=== PATIENT | male | born 1955 | race Caucasian/White ===

== ENCOUNTER → 2020-07-09 | Outpatient (CLI) | payer OTHER ==
[~2020-07-09] MED LIST: ASA5UEC; AZOR 5-20 MG T1 EACH PO; CELEXA 20 MG TA20 M1 PO; COZAAR 25 MG TA25 M1 PO; FAMOTIDINE; INHALERS; METFORMIN HCL500 MG PO; NORVASC5 MG PO; PRILOSEC 20 MG20 MG PO; Vitamin B-12 IM
--- NOTE | 2020-07-09 10:49 | EXE ---
[facility] [place] [address] STRESS ECHOCARDIOGRAM Name: NATHAN ALVARADO Room #: REG [facility].#: [id number] Admission: 07/09/20 Attend Phys: Jackson Amaya MD Discharge: Date of : 57 Report #: [id number] THIS REPORT FOR: cc: Jackson Amaya MD, Yutaka MD Santiago, Patrick MD [facility] ~ APPROVED REPORT Study performed: 07/09/2020 08:20:21 Exam: Stress Echocardiogram Indication: Increased calcium score, Hypertension Patient Location: Out-Patient Room #: 2 Status: routine Ht: 6 ft 0 in HR: 67 bpm BP: 124/86 mmHg Rhythm: NSR Medical History Cardiac Risk Factors: HTN, DM Exercise History: Physically active Procedure The patient underwent an Exercise Stress Test using the Carl Protocol. Blood pressure, heart rate, and EKG were monitored. An Echocardiogram was performed by application support technician in four stages in quad fashion. At peak stress, four selected images were obtained and placed side by side with resting images for comparison. Stress Test Details Stress Test: Exercise stress testing was performed using a Carl protocol. HR Resting HR: 67 bpm Max Heart Rate (APMHR): 157 bpm Max HR Achieved: 151 bpm Target HR (85% APMHR): 133 bpm % of APMHR: 96 Recovery HR: 87 bpm HR response to stress: Normal HR response to stress BP Resting BP: 124/86 mmHg Max BP: 182/80 mmHg [facility] [address] [place] [address] STRESS ECHOCARDIOGRAM Name: JENNYNATHAN ACLL Room #: REG [facility].#: [id number] Admission: 07/09/20 Attend Phys: Jackson Amaya MD Discharge: Date of : 57 Report #: [id number] Recovery BP: 138/80 mmHg BP response to stress: Normal blood pressure response to stress. ECG Resting ECG: Sinus Rhythm ST Change: Ischemic Maximum ST Deviation: 1 mm Arrhythmia: None Clinical Reason for Termination: Maximal effort Exercise duration: 9 min 43 sec Highest Stage Achieved: Stage 4: 4.2 mph at 16% grade. Exercise capacity: 11.8 METs Overall Exercise Capacity for Age: Good Stress ECG Conclusion Borderline [address] depression in V4 and V5 at peak stress No arrhythmia detected Pre-Stress Echo The resting Echocardiogram showed normal left ventricular contractility with an estimated Ejection Fraction of about >55%. The resting echocardiogram demonstrated normal wall motion in all wall segments. Post-Stress Echo The stress Echocardiogram showed normal left ventricular contractility with an estimated Ejection Fraction of about 65-70%. Compared to rest, there were no stress-induced wall motion abnormalities. Conclusion Clinical Response: Non-ischemic Exercise Capacity: Superior Stress ECG Response: Non-ischemic Stress Echo Images: Non-ischemic Excellent functional capacity able to exercise for a total of 9 minutes;43 seconds on a Carl protocol Peak heart rate of 155 bpm / 96% of maximum predicted heart rate for age and a peak blood pressure 172/88 mmHg Preserved ejection fraction baseline EF of 60% Hyper contractile systolic function at peak stress, no obvious ischemic changes detected No chest pain Low risk maximal stress echocardiogram. [facility] [place] [address] [place] [address] STRESS ECHOCARDIOGRAM Name: NATHAN ALVARADO Room #: REG CL [facility].#: [id number] Admission: 07/09/20 Attend Phys: Jackson Amaya MD Discharge: Date of : 57 Report #: [id number] No prior study available for comparison. Other Information Study Quality: Adequate <Conclusion> Excellent functional capacity able to exercise for a total of 9 minutes;43 seconds on a Carl protocol Peak heart rate of 155 bpm / 96% of maximum predicted heart rate for age and a peak blood pressure 172/88 mmHg Preserved ejection fraction baseline EF of 60% Hyper contractile systolic function at peak stress, no obvious ischemic changes detected No chest pain Low risk maximal stress echocardiogram. <ELECTRONICALLY SIGNED> By: Ray Cuello MD, FACC 07/09/20 1049 1049 1049 Ray Cuello MD, FACC /INF
== END ==
LOC: CV 08:44
PROVIDERS: ATTEND Family Medicine
DX: I25.10 Atherosclerotic heart disease of native coronary artery without angina pectoris (principal); I10 Essential (primary) hypertension; E11.9 Type 2 diabetes mellitus without complications